=== PATIENT | male | born 1940 | race Caucasian/White ===

== ENCOUNTER 2022-01-10 11:30 | Inpatient (IN) | payer MEDICARE ==
[~2022-01-10] VITALS: Ht 157.5 cm; Wt 86.8 kg
[2022-01-10] MEDS ORDERED: MAG HYDROX/AL HYDROX/SIMETH 30 ML ORAL.SUSP PO PRN (12:45)
[2022-01-10] MEDS ORDERED: METHYL SALICYLATE/MENTHOL TOPICAL OINTMENT 57GM TUBE. TP PRN (12:45)
[2022-01-10] MEDS ORDERED: ACETAMINOPHEN 325 MG TABLET PO PRN (12:45)
[2022-01-10] MEDS ORDERED: MAGNESIUM HYDROXIDE 2,400 MG/30 ML ORAL.SUSP. PO PRN (12:45)
[2022-01-10 13:59] VITALS: BP 100/69
[2022-01-10 14:23] LABS: BACTERIA,URINE 0 /HPF (0-FEW); CLARITY,URINE HAZY; COLOR,URINE YELLOW; GLUCOSE,URINE NEG (NEG); NITRITE,URINE NEG (NEG); SPERM,URINE PRESENT /HPF; SQUAMOUS EPITHELIAL CELL,UR FEW /LPF
[2022-01-10 14:37] LABS: BASO % 1 % (0-3); EOS % 0 % (0-3); HEMATOCRIT 38.7 % (39.0-53.0); HEMOGLOBIN 12.8 g/dL (13.0-17.5); LYMPH % 17 % (24-48); MEAN CORPUSCULAR HEMOGLOBIN 33 pg (25-35); MEAN CORPUSCULAR HGB CONC 33 g/dL (31-37); MEAN CORPUSCULAR VOLUME 100 fL (79-100); MONO # 0.5 x10^3/uL (0.0-1.1); MONO % 8 % (0-9); NEUT # 4.5 x10^3uL (1.8-7.7); NEUT % 74 % (31-73); PLATELET COUNT 190 x10^3/uL (140-400); RED BLOOD COUNT 3.88 x10^6/uL (4.30-5.70); RED CELL DISTRIBUTION WIDTH 14.9 % (11.5-14.5)
[2022-01-10 14:48] LABS: ALBUMIN 2.4 g/dL (3.4-5.0); ALBUMIN/GLOBULIN RATIO 0.8 (1.0-1.7); CALCIUM 8.8 mg/dL (8.5-10.1); CREATININE 1.1 mg/dL (0.7-1.3); GFR 64.6; POTASSIUM 3.7 mmol/L (3.5-5.1); TOTAL BILIRUBIN 0.5 mg/dL (0.2-1.0); TOTAL PROTEIN 5.6 g/dL (6.4-8.2)
--- NOTE | 2022-01-10 15:31 | TX PLAN ---
Interdisciplinary Tx Plan Admission Information Jan 10, 2022 at 12:33 Legal Status (on Admission): Voluntary DPOA/Guardian Name: Farrukh Pineda Contact Other Contact Name: [facility] Other Contact Verified Code Status: DNR Allergies: Coded Allergies: cephalexin (Verified Allergy, Unknown, 01/10/22) lansoprazole (Verified Allergy, Unknown, 01/10/22) Diagnoses Primary Diagnosis: Major Neurocognitive D/O, Vascular Alzheimers D/O with Delusions, Depression and Behavioral Disturbance Reasons for Admission: Aggressive, Agitated, Combative, Confusion/Disoriented, Poor impulse control Problem in Patient's Words: Concerns the are overmedicating him because his is restless and they "don't want to deal with him". Additional Admission Comments: According to the intake, pt is confused, agitated, disrobing, restless, hollering out, refused medications, beligerent, anxious, threatening to kill staff, combative. Problems Active Problems: Appears currently overly medicated Inactive Problems: N/A Pt Strengths/Limitations Ability for [place]: Poor Cognitive Functioning/Ability: Poor Communication Skills/Ability: Poor Financial Resources: Fair Insight/Judgement: Poor Intellectual Ability: Poor Physical Health: Poor Social Skills: Poor Stability in Family: Fair Stability in School/Work: Poor Verbal Skills: Poor Discharge Criteria Discharge Criteria: No need for close observ., Adequate arrangements @DC, Improved behavior, Improved mood/thought Preliminary Discharge Plan Preliminary DC Plan: Current Living Arrange. Special Precautions Fall Risk: Moderate Initial D/C Plan Pt will return to [facility] once stable. Identified Discharge Needs: Evaluate resources for psychiatric services in the area. Currently Utilized Resources Currently Utilized Resources/P: Primary Care Physician Referrals Community Resources: Servies for psychiatric follow-up Identified Problems/Hx/Goals Objectives/Short-Term Goals Short Term Goals: Dec. Aggression, Dec. Outbursts, Medication Stabilization, Promote Coping Skill Short Term Goals in Patient's: Medication and behavioral management Interventions/Frequency Staff Interventions/Frequency&: Psychiatrist to assess pt at least 3x per week for medication management. Social Work to assess pt at least 2x per week to identify barriers to care, discharge goals and plan of care. Nursing to assess medication effects, behavior modification and complete 15 minute checks daily. Encourage participation in group activities (if applicable) or 1:1 engagement based of [employer] [facility] goals. 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 Education: Pt did not graduate highschool, but later was able to receive his GED. Community Follow-up Will continue to follow up with PCP Community Provider/Family Inpu: I think he just needs to be wiped of all medications and start all over from scratch. The hospital "doped" him up so much he can't do anything right now. Treatment Plan Explained Patient/Project Management Instructor had this treatment plan explained to him/her as indicated by the signature below and has been given the opportunity to ask questions and make suggestions: Date: Patient/Project Management Instructor Signature: Patient/Project Management Instructor Decline: No (Dtr active in pt care.) DARCIE OSULLIVAN Jan 10, 2022 15:31
[2022-01-10] MEDS ORDERED: SIMETHICONE 80 MG TAB.CHEW PO PRN (15:45)
[2022-01-10] MEDS ORDERED: BISACODYL 10 MG/30 ML ENEMA RC PRN (15:45)
[2022-01-10 16:29] VITALS: BP 99/67
[2022-01-10] MEDS ORDERED: CLIN-95 PO (16:49)
[2022-01-10] MEDS ORDERED: CARB15DR2 OP (16:49)
[2022-01-10] MEDS ORDERED: BACL10TA PO (16:49)
[2022-01-10] MEDS ORDERED: CRESTOR10 MG PO (16:49)
[2022-01-10] MEDS ORDERED: SIME80TA14 PO (16:49)
[2022-01-10] MEDS ORDERED: BISA10EN RC (16:49)
[2022-01-10] MEDS ORDERED: ALBU2.5V8 IH (16:49)
[2022-01-10] MEDS ORDERED: LISI10TA16 PO (16:49)
[2022-01-10] MEDS ORDERED: FLUT16SP21 NS (16:49)
[2022-01-10] MEDS ORDERED: QUET100T4 PO (16:49)
[2022-01-10] MEDS ORDERED: TRAM50TA PO (16:49)
[2022-01-10] MEDS ORDERED: GEMF-24 PO (16:49)
[2022-01-10] MEDS ORDERED: CALC-30 PO (16:49)
[2022-01-10] MEDS ORDERED: DILT60TA3 PO (16:49)
[2022-01-10] MEDS ORDERED: POTA10TA12 PO (16:49)
[2022-01-10] MEDS ORDERED: HYDR-2145 PO (16:49)
[2022-01-10] MEDS ORDERED: SENN8.6T11 PO (16:49)
[2022-01-10] MEDS ORDERED: DOCU100C28 PO (16:49)
[2022-01-10] MEDS ORDERED: POLY17PO5 PO (16:49)
[2022-01-10] MEDS ORDERED: DICY10CA3 PO (16:49)
[2022-01-10] MEDS ORDERED: mometasone INH (16:49)
[2022-01-10] MEDS ORDERED: TRAZ-125 PO (16:49)
[2022-01-10] MEDS ORDERED: LACT1CAP6 PO (16:49)
[2022-01-10] MEDS ORDERED: ALBUTEROL SULFATE 2.5 MG/3 ML NEBU. IH SCH ×2 (17:00→17:12)
[2022-01-10] MEDS ORDERED: POLYVINYL ALCOHOL/POVIDONE/PF OPHTH SOLUTION DROPERETTE. OU PRN (17:15)
--- NOTE | 2022-01-10 17:24 | EKG ---
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
[2022-01-10] MEDS: DOCUSATE SODIUM 100 MG CAPSULE PO SCH (19:35)
[2022-01-10] MEDS: SENNOSIDES 8.6 MG TABLET PO SCH (19:36)
[2022-01-10] MEDS: POLYETHYLENE GLYCOL 3350 17 GM PACKET. PO SCH (19:36)
[2022-01-10] MEDS: DICYCLOMINE HCL 10 MG CAPSULE PO SCH (19:46)
[2022-01-10] MEDS: ATORVASTATIN CALCIUM 20 MG TABLET PO SCH (19:47)
[2022-01-10] MEDS: POTASSIUM CHLORIDE 10 MEQ TABLET.ER. PO SCH (19:47)
[2022-01-10] MEDS: BACLOFEN 10 MG TABLET PO SCH (19:47)
[2022-01-10] MEDS: traZODone 100 MG TABLET. PO SCH (19:47)
[2022-01-10] MEDS ORDERED: BUDESONIDE 0.5 MG/2 ML NEBU NEB SCH (20:00)
[2022-01-10] MEDS: QUEtiapine 100 MG TABLET. PO SCH (21:00)
[2022-01-10] MEDS: CLINDAMYCIN HCL 300 MG PO SCH (21:00)
[2022-01-10] MEDS: GEMFIBROZIL 600 MG TABLET. PO SCH (21:00)
[2022-01-10] MEDS: ALBUTEROL SULFATE 8GM INHALER. INH SCH (21:00)
--- NOTE | 2022-01-10 21:44 | PDOC ---
Exam Note: Antoine Note: Please also refer to the separate dictated note~for this date of service dictated separately.~Patient seen individually. Discussed the patient with Nursing staff reviewed the chart.~Reviewed interim history and current functioning. Reviewed vital signs,~Labs/ Radiology~and current medications noted below. Continue current treatment with the changes noted in the dictated addendum note Assessment: Vital Signs/I&O: Vital Signs Date Time Temp Pulse Resp B/P (MAP) Pulse Ox O2 Delivery O2 Flow Rate FiO2 01/10/22 16:29 97.7 90 14 99/67 (78) 97 Nasal Cannula 1.0 Labs: Laboratory Tests Test 01/10/22 13:20 01/10/22 14:20 Urine Collection Type U cath Urine Color Yellow Urine Clarity Hazy Urine pH 6.0 Urine Specific [place] >=1.030 Urine Protein Trace (NEG-TRACE) Urine Glucose (UA) Neg mg/dL (NEG) Urine Ketones (Stick) Neg mg/dL (NEG) Urine Blood Neg (NEG) Urine Nitrite Neg (NEG) Urine Bilirubin Small (NEG) Urine Urobilinogen Dipstick 1.0 mg/dL (0.2 mg/dL) Urine Leukocyte Esterase Neg (NEG) Urine RBC 6-10 /HPF (0-2) Urine WBC 1-4 /HPF (0-4) Urine Squamous Epithelial Cells Few /LPF Urine Transitional Epithelial Cells Occ /LPF Urine Bacteria 0 /HPF (0-FEW) Urine Mucus Mod /LPF Urine Sperm Present /HPF White Blood Count 6.0 x10^3/uL (4.0-11.0) Red Blood Count 3.88 x10^6/uL (4.30-5.70) L Hemoglobin 12.8 g/dL (13.0-17.5) L Hematocrit 38.7 % (39.0-53.0) L Mean Corpuscular Volume 100 fL (79-100) Mean Corpuscular Hemoglobin 33 pg (25-35) Mean Corpuscular Hemoglobin Concent 33 g/dL (31-37) Red Cell Distribution Width 14.9 % (11.5-14.5) H Platelet Count 190 x10^3/uL (140-400) Neutrophils (%) (Auto) 74 % (31-73) H Lymphocytes (%) (Auto) 17 % (24-48) L Monocytes (%) (Auto) 8 % (0-9) Eosinophils (%) (Auto) 0 % (0-3) Basophils (%) (Auto) 1 % (0-3) Neutrophils # (Auto) 4.5 x10^3uL (1.8-7.7) Lymphocytes # (Auto) 1.0 x10^3/uL (1.0-4.8) Monocytes # (Auto) 0.5 x10^3/uL (0.0-1.1) Eosinophils # (Auto) 0.0 x10^3/uL (0.0-0.7) Basophils # (Auto) 0.0 x10^3/uL (0.0-0.2) D-Dimer (Lainey) 0.91 mg/L (0.00-0.50) H Sodium Level 138 mmol/L (136-145) Potassium Level 3.7 mmol/L (3.5-5.1) Chloride Level 104 mmol/L (98-107) Carbon Dioxide Level 28 mmol/L (21-32) Anion Gap 6 (6-14) Blood Urea Nitrogen 13 mg/dL (8-26) Creatinine 1.1 mg/dL (0.7-1.3) Estimated GFR (Cockcroft-Gault) 64.6 BUN/Creatinine Ratio 12 (6-20) Glucose Level 92 mg/dL (70-99) Calcium Level 8.8 mg/dL (8.5-10.1) Magnesium Level 2.0 mg/dL (1.8-2.4) Total Bilirubin 0.5 mg/dL (0.2-1.0) Aspartate Amino Transferase (AST) 22 U/L (15-37) Alanine Aminotransferase (ALT) 31 U/L (16-63) Alkaline Phosphatase 68 U/L (46-116) Total Protein 5.6 g/dL (6.4-8.2) L Albumin 2.4 g/dL (3.4-5.0) L Albumin/Globulin Ratio 0.8 (1.0-1.7) L Current Medications: Meds: Laboratory Tests Test 01/10/22 13:20 01/10/22 14:20 Urine Collection Type U cath Urine Color Yellow Urine Clarity Hazy Urine pH 6.0 Urine Specific [place] >=1.030 Urine Protein Trace Urine Glucose (UA) Neg mg/dL Urine Ketones (Stick) Neg mg/dL Urine Blood Neg Urine Nitrite Neg Urine Bilirubin Small Urine Urobilinogen Dipstick 1.0 mg/dL Urine Leukocyte Esterase Neg Urine RBC 6-10 /HPF Urine WBC 1-4 /HPF Urine Squamous Epithelial Cells Few /LPF Urine Transitional Epithelial Cells Occ /LPF Urine Bacteria 0 /HPF Urine Mucus Mod /LPF Urine Sperm Present /HPF White Blood Count 6.0 x10^3/uL Red Blood Count 3.88 x10^6/uL Hemoglobin 12.8 g/dL Hematocrit 38.7 % Mean Corpuscular Volume 100 fL Mean Corpuscular Hemoglobin 33 pg Mean Corpuscular Hemoglobin Concent 33 g/dL Red Cell Distribution Width 14.9 % Platelet Count 190 x10^3/uL Neutrophils (%) (Auto) 74 % Lymphocytes (%) (Auto) 17 % Monocytes (%) (Auto) 8 % Eosinophils (%) (Auto) 0 % Basophils (%) (Auto) 1 % Neutrophils # (Auto) 4.5 x10^3uL Lymphocytes # (Auto) 1.0 x10^3/uL Monocytes # (Auto) 0.5 x10^3/uL Eosinophils # (Auto) 0.0 x10^3/uL Basophils # (Auto) 0.0 x10^3/uL D-Dimer (Lainey) 0.91 mg/L Sodium Level 138 mmol/L Potassium Level 3.7 mmol/L Chloride Level 104 mmol/L Carbon Dioxide Level 28 mmol/L Anion Gap 6 Blood Urea Nitrogen 13 mg/dL Creatinine 1.1 mg/dL Estimated GFR (Cockcroft-Gault) 64.6 BUN/Creatinine Ratio 12 Glucose Level 92 mg/dL Calcium Level 8.8 mg/dL Magnesium Level 2.0 mg/dL Total Bilirubin 0.5 mg/dL Aspartate Amino Transf (AST/SGOT) 22 U/L Alanine Aminotransferase (ALT/SGPT) 31 U/L Alkaline Phosphatase 68 U/L Total Protein 5.6 g/dL Albumin 2.4 g/dL Albumin/Globulin Ratio 0.8 Current Medications Medications (Trade) Dose Ordered Sig/Kathy Route PRN Reason Start Time Stop Time Status Last Admin Dose Admin Acetaminophen (Tylenol) 650 mg PRN Q6HRS PRN PO MILD PAIN / TEMP > 100.3'F 01/10/22 12:45 Multi-Ingredient Ointment (Analgesic [place]) 1 brenna PRN QID PRN TP MUSCLE PAIN 01/10/22 12:45 Al Hydroxide/Mg Hydroxide (Mylanta Plus Xs) 15 ml PRN AFTMEALHC PRN PO DYSPEPSIA 01/10/22 12:45 Magnesium Hydroxide (Milk Of Magnesia) 2,400 mg PRN QHS PRN PO CONSTIPATION 01/10/22 12:45 Albuterol Sulfate (Ventolin) 1.8 mg QID IH 01/10/22 17:00 01/10/22 17:12 DC Baclofen (Lioresal) 10 mg TID PO 01/10/22 21:00 01/10/22 19:47 Bisacodyl (Fleet Bisacodyl) 10 mg PRN DAILY PRN RC CONSTIPATION 01/10/22 15:45 Dicyclomine HCl (Bentyl) 10 mg TID PO 01/10/22 21:00 01/10/22 19:46 Docusate Sodium (Colace) 100 mg BID PO 01/10/22 21:00 Fluticasone Propionate (Flonase) 1 spray DAILY NS 01/11/22 09:00 Gemfibrozil (Lopid) 600 mg BID PO 01/10/22 21:00 Hydrochlorothiazide (Hydrodiuril) 25 mg DAILY PO 01/11/22 09:00 Lisinopril (Prinivil) 10 mg DAILY PO 01/11/22 09:00 Polyethylene Glycol (miraLAX) 17 gm TID PO 01/10/22 21:00 Potassium Chloride (Klor-Con) 10 meq TID PO 01/10/22 21:00 01/10/22 19:47 Quetiapine Fumarate (SEROquel) 100 mg BID PO 01/10/22 21:00 Sennosides (Senna) 8.6 mg BID PO 01/10/22 21:00 Simethicone (Gas-X) 80 mg PRN Q8HRS PRN PO GAS / BLOATING 01/10/22 15:45 Tramadol HCl (Ultram) 25 mg PRN Q8HRS PRN PO PAIN 01/10/22 15:45 Trazodone HCl (Desyrel) 200 mg QHS PO 01/10/22 21:00 01/10/22 19:47 Calcium/Vitamin D (Oscal D 500mg/ 200uts) 2 tab DAILY PO 01/11/22 09:00 Artificial Tears (Refresh Classic) 2 drop PRN Q6HRS PRN OU DRY EYE 01/10/22 17:15 Non-Formulary Medication (Clindamycin Hcl ) 300 mg TID PO 01/10/22 21:00 UNV Diltiazem HCl (Cardizem 24hr Cd) 120 mg DAILY PO 01/11/22 09:00 Non-Formulary Medication (Lactobacillus Acidophilus (Probiotic)) 1 cap DAILY PO 01/11/22 09:00 UNV Atorvastatin Calcium (Lipitor) 20 mg QHS PO 01/10/22 21:00 01/10/22 19:47 Non-Formulary Medication ([mometasone ] ) 220 mcg DAILY INH 01/11/22 09:00 01/10/22 17:17 DC Albuterol Sulfate (Ventolin) 2.5 mg QID IH 01/10/22 17:12 Cancel Budesonide (Pulmicort) 0.5 mg RTBID NEB 01/10/22 20:00 Cancel Fluticasone Furoate (ARNUITY 100mcg ELLIPTA) 1 puff DAILY INH 01/11/22 09:00 Albuterol Sulfate (Ventolin Hfa Inhaler) 2 puff QID INH 01/10/22 21:00 Current Medications Medications (Trade) Dose Ordered Sig/Kathy Route PRN Reason Start Time Stop Time Status Last Admin Dose Admin Baclofen (Lioresal) 10 mg TID PO 01/10/22 21:00 01/10/22 19:47 Dicyclomine HCl (Bentyl) 10 mg TID PO 01/10/22 21:00 01/10/22 19:46 Potassium Chloride (Klor-Con) 10 meq TID PO 01/10/22 21:00 01/10/22 19:47 Trazodone HCl (Desyrel) 200 mg QHS PO 01/10/22 21:00 01/10/22 19:47 Atorvastatin Calcium (Lipitor) 20 mg QHS PO 01/10/22 21:00 01/10/22 19:47 I have reviewed the current psychotropics carefully including drug interactions. Risk benefit ratio favors no change other than as noted in my dictated progress note. LATISHA KHAN MD Jan 10, 2022 21:44
[2022-01-11 00:07] LABS: HEMOGLOBIN A1C 6.1 % (4.8-5.6)
[2022-01-11 01:07] LABS: THYROXINE 6.1 ug/dL (4.5-12.0)
[2022-01-11] MEDS: traMADol 50 MG TABLET PO PRN ×2 (05:36→22:29)
[2022-01-11 06:22] VITALS: BP 112/65
[2022-01-11] MEDS ORDERED: NON FORMULARY ITEM (Lactobacillus Acidophilus (Probiotic) 1 CAP) PO SCH (09:00)
[2022-01-11] MEDS: DOCUSATE SODIUM 100 MG CAPSULE PO SCH ×2 (09:00→20:45)
[2022-01-11] MEDS: SENNOSIDES 8.6 MG TABLET PO SCH ×2 (09:00→20:45)
[2022-01-11] MEDS ORDERED: MOMETASONE 220 MCG INH SCH (09:00)
[2022-01-11] MEDS: CLINDAMYCIN HCL 300 MG PO SCH (09:00)
[2022-01-11] MEDS: POLYETHYLENE GLYCOL 3350 17 GM PACKET. PO SCH ×3 (09:00→20:45)
[2022-01-11] MEDS: hydroCHLOROthiazide 25 MG TABLET. PO SCH (09:09)
[2022-01-11] MEDS: DICYCLOMINE HCL 10 MG CAPSULE PO SCH ×3 (09:09→20:21)
[2022-01-11] MEDS: LISINOPRIL 10 MG TABLET PO SCH (09:09)
[2022-01-11] MEDS: BACLOFEN 10 MG TABLET PO SCH ×3 (09:09→20:19)
[2022-01-11] MEDS: GEMFIBROZIL 600 MG TABLET. PO SCH ×2 (09:09→20:13)
[2022-01-11] MEDS: POTASSIUM CHLORIDE 10 MEQ TABLET.ER. PO SCH ×3 (09:09→20:18)
[2022-01-11] MEDS: CALCIUM CARB/VIT D3 500/200 TABLET PO SCH (09:09)
[2022-01-11] MEDS: QUEtiapine 100 MG TABLET. PO SCH ×2 (09:09→20:18)
[2022-01-11] MEDS: FLUTICASONE FUROATE 100mcg/INH ELLIPTA INHALER. INH SCH (09:11)
[2022-01-11] MEDS: FLUTICASONE 50MCG/NASAL SPRAY 16GM BOTTLE. NS SCH (09:11)
[2022-01-11] MEDS: ALBUTEROL SULFATE 8GM INHALER. INH SCH ×4 (09:11→20:45)
[2022-01-11] MEDS: CLINDAMYCIN HCL 150 MG CAPSULE PO SCH ×2 (14:14→20:22)
[2022-01-11 15:38] VITALS: BP 111/71
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
[2022-01-11] MEDS: DIVALPROEX 125 MG CAP.SPRINK PO SCH (17:17)
[2022-01-11] MEDS: traZODone 100 MG TABLET. PO SCH (20:13)
[2022-01-11] MEDS: ATORVASTATIN CALCIUM 20 MG TABLET PO SCH (20:18)
[2022-01-11] MEDS: LACTOBACILLUS RHAMNOSUS GG 1 CAPSULE. PO SCH (20:22)
--- NOTE | 2022-01-11 21:42 | PDOC ---
Exam Note: Antoine Note: Please also refer to the separate dictated note~for this date of service dictated separately.~Patient seen individually. Discussed the patient with Nursing staff reviewed the chart.~Reviewed interim history and current functioning. Reviewed vital signs,~Labs/ Radiology~and current medications noted below. Continue current treatment with the changes noted in the dictated addendum note Assessment: Vital Signs/I&O: Vital Signs Date Time Temp Pulse Resp B/P (MAP) Pulse Ox O2 Delivery O2 Flow Rate FiO2 01/11/22 15:38 97.4 94 19 111/71 (84) 93 01/10/22 16:29 Nasal Cannula 1.0 I & O 01/10/22 01/10/22 01/11/22 15:00 23:00 07:00 Intake Total 0 ml Balance 0 ml Current Medications: Meds: Current Medications Medications (Trade) Dose Ordered Sig/Kathy Route PRN Reason Start Time Stop Time Status Last Admin Dose Admin Acetaminophen (Tylenol) 650 mg PRN Q6HRS PRN PO MILD PAIN / TEMP > 100.3'F 01/10/22 12:45 Multi-Ingredient Ointment (Analgesic [place]) 1 brenna PRN QID PRN TP MUSCLE PAIN 01/10/22 12:45 Al Hydroxide/Mg Hydroxide (Mylanta Plus Xs) 15 ml PRN AFTMEALHC PRN PO DYSPEPSIA 01/10/22 12:45 Magnesium Hydroxide (Milk Of Magnesia) 2,400 mg PRN QHS PRN PO 1ST CHOICE CONSTIPATION 01/10/22 12:45 Albuterol Sulfate (Ventolin) 1.8 mg QID IH 01/10/22 17:00 01/10/22 17:12 DC Baclofen (Lioresal) 10 mg TID PO 01/10/22 21:00 01/11/22 20:19 Bisacodyl (Fleet Bisacodyl) 10 mg PRN DAILY PRN RC 2ND CHOICE CONSTIPATION 01/10/22 15:45 Dicyclomine HCl (Bentyl) 10 mg TID PO 01/10/22 21:00 01/11/22 20:21 Docusate Sodium (Colace) 100 mg BID PO 01/10/22 21:00 Fluticasone Propionate (Flonase) 1 spray DAILY NS 01/11/22 09:00 01/11/22 09:11 Gemfibrozil (Lopid) 600 mg BID PO 01/10/22 21:00 01/11/22 20:13 Hydrochlorothiazide (Hydrodiuril) 25 mg DAILY PO 01/11/22 09:00 01/11/22 09:09 Lisinopril (Prinivil) 10 mg DAILY PO 01/11/22 09:00 01/11/22 09:09 Polyethylene Glycol (miraLAX) 17 gm TID PO 01/10/22 21:00 Potassium Chloride (Klor-Con) 10 meq TID PO 01/10/22 21:00 01/11/22 20:18 Quetiapine Fumarate (SEROquel) 100 mg BID PO 01/10/22 21:00 01/11/22 20:18 Sennosides (Senna) 8.6 mg BID PO 01/10/22 21:00 Simethicone (Gas-X) 80 mg PRN Q8HRS PRN PO GAS / BLOATING 01/10/22 15:45 Tramadol HCl (Ultram) 25 mg PRN Q8HRS PRN PO PAIN 01/10/22 15:45 01/11/22 05:36 Trazodone HCl (Desyrel) 200 mg QHS PO 01/10/22 21:00 01/11/22 20:13 Calcium/Vitamin D (Oscal D 500mg/ 200uts) 2 tab DAILY PO 01/11/22 09:00 01/11/22 09:09 Artificial Tears (Refresh Classic) 2 drop PRN Q6HRS PRN OU DRY EYE 01/10/22 17:15 Non-Formulary Medication (Clindamycin Hcl ) 300 mg TID PO 01/10/22 21:00 01/11/22 12:35 DC Diltiazem HCl (Cardizem 24hr Cd) 120 mg DAILY PO 01/11/22 09:00 01/11/22 09:10 Non-Formulary Medication (Lactobacillus Acidophilus (Probiotic)) 1 cap DAILY PO 01/11/22 09:00 01/11/22 12:34 DC Atorvastatin Calcium (Lipitor) 20 mg QHS PO 01/10/22 21:00 01/11/22 20:18 Non-Formulary Medication ([mometasone ] ) 220 mcg DAILY INH 01/11/22 09:00 01/10/22 17:17 DC Albuterol Sulfate (Ventolin) 2.5 mg QID IH 01/10/22 17:12 Cancel Budesonide (Pulmicort) 0.5 mg RTBID NEB 01/10/22 20:00 Cancel Fluticasone Furoate (ARNUITY 100mcg ELLIPTA) 1 puff DAILY INH 01/11/22 09:00 01/11/22 09:11 Albuterol Sulfate (Ventolin Hfa Inhaler) 2 puff QID INH 01/10/22 21:00 01/11/22 17:26 Olanzapine (ZyPREXA ZYDIS) 5 mg PRN Q2HR PRN PO PSYCHOSIS 01/10/22 22:45 01/11/22 05:37 Divalproex Sodium (Depakote Sprinkles) 125 mg BIDWMEALS PO 01/11/22 17:00 01/11/22 17:17 Clindamycin HCl (Cleocin) 300 mg TID PO 01/11/22 14:00 01/15/22 10:00 01/11/22 20:22 Lactobacillus Rhamnosus (Culturelle) 1 cap BID PO 01/11/22 21:00 01/11/22 20:22 Current Medications Medications (Trade) Dose Ordered Sig/Kathy Route PRN Reason Start Time Stop Time Status Last Admin Dose Admin Fluticasone Propionate (Flonase) 1 spray DAILY NS 01/11/22 09:00 01/11/22 09:11 Hydrochlorothiazide (Hydrodiuril) 25 mg DAILY PO 01/11/22 09:00 01/11/22 09:09 Lisinopril (Prinivil) 10 mg DAILY PO 01/11/22 09:00 01/11/22 09:09 Calcium/Vitamin D (Oscal D 500mg/ 200uts) 2 tab DAILY PO 01/11/22 09:00 01/11/22 09:09 Diltiazem HCl (Cardizem 24hr Cd) 120 mg DAILY PO 01/11/22 09:00 01/11/22 09:10 Fluticasone Furoate (ARNUITY 100mcg ELLIPTA) 1 puff DAILY INH 01/11/22 09:00 01/11/22 09:11 Olanzapine (ZyPREXA ZYDIS) 5 mg PRN Q2HR PRN PO PSYCHOSIS 01/10/22 22:45 01/11/22 05:37 Divalproex Sodium (Depakote Sprinkles) 125 mg BIDWMEALS PO 01/11/22 17:00 01/11/22 17:17 Clindamycin HCl (Cleocin) 300 mg TID PO 01/11/22 14:00 01/15/22 10:00 01/11/22 20:22 Lactobacillus Rhamnosus (Culturelle) 1 cap BID PO 01/11/22 21:00 01/11/22 20:22 I have reviewed the current psychotropics carefully including drug interactions. Risk benefit ratio favors no change other than as noted in my dictated progress note. LATISHA KHAN MD Jan 11, 2022 21:42
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
[2022-01-12 06:44] VITALS: BP 100/77
[2022-01-12] MEDS: DOCUSATE SODIUM 100 MG CAPSULE PO SCH ×2 (08:43→21:28)
[2022-01-12] MEDS: POTASSIUM CHLORIDE 10 MEQ TABLET.ER. PO SCH ×3 (08:43→21:28)
[2022-01-12] MEDS: POLYETHYLENE GLYCOL 3350 17 GM PACKET. PO SCH ×3 (08:44→21:29)
[2022-01-12] MEDS: hydroCHLOROthiazide 25 MG TABLET. PO SCH (08:45)
[2022-01-12] MEDS: CALCIUM CARB/VIT D3 500/200 TABLET PO SCH (08:45)
[2022-01-12] MEDS: DICYCLOMINE HCL 10 MG CAPSULE PO SCH ×3 (08:46→21:18)
[2022-01-12] MEDS: SENNOSIDES 8.6 MG TABLET PO SCH ×2 (08:47→21:28)
[2022-01-12] MEDS: DIVALPROEX 125 MG CAP.SPRINK PO SCH ×2 (08:47→16:21)
[2022-01-12] MEDS: QUEtiapine 100 MG TABLET. PO SCH ×2 (08:47→21:18)
[2022-01-12] MEDS: CLINDAMYCIN HCL 150 MG CAPSULE PO SCH ×3 (08:48→21:18)
[2022-01-12] MEDS: LACTOBACILLUS RHAMNOSUS GG 1 CAPSULE. PO SCH ×2 (08:48→21:29)
[2022-01-12] MEDS: GEMFIBROZIL 600 MG TABLET. PO SCH ×2 (08:48→21:28)
[2022-01-12] MEDS: BACLOFEN 10 MG TABLET PO SCH ×3 (08:48→21:18)
[2022-01-12] MEDS: FLUTICASONE FUROATE 100mcg/INH ELLIPTA INHALER. INH SCH (08:49)
[2022-01-12] MEDS: LISINOPRIL 10 MG TABLET PO SCH (08:49)
[2022-01-12] MEDS: ALBUTEROL SULFATE 8GM INHALER. INH SCH ×4 (08:49→21:27)
[2022-01-12] MEDS: FLUTICASONE 50MCG/NASAL SPRAY 16GM BOTTLE. NS SCH (08:49)
[2022-01-12 15:42] VITALS: BP 115/80
[2022-01-12 21:09] LABS: CHOLESTEROL/HDL RATIO 3.5; THYROID STIM HORMONE (TSH) 1.165 uIU/mL (0.358-3.740)
[2022-01-12] MEDS: traZODone 100 MG TABLET. PO SCH (21:17)
[2022-01-12] MEDS: MIRTAZAPINE 7.5 MG TABLET. PO SCH (21:18)
[2022-01-12] MEDS: ATORVASTATIN CALCIUM 20 MG TABLET PO SCH (21:29)
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
--- NOTE | 2022-01-12 21:54 | PDOC ---
Exam Note: Antoine Note: Please also refer to the separate dictated note~for this date of service dictated separately.~Patient seen individually. Discussed the patient with Nursing staff reviewed the chart.~Reviewed interim history and current functioning. Reviewed vital signs,~Labs/ Radiology~and current medications noted below. Continue current treatment with the changes noted in the dictated addendum note Assessment: Vital Signs/I&O: Vital Signs Date Time Temp Pulse Resp B/P (MAP) Pulse Ox O2 Delivery O2 Flow Rate FiO2 01/12/22 15:42 98.6 90 16 115/80 (92) 96 01/11/22 22:59 Room Air 01/10/22 16:29 1.0 I & O 0 01/11/22 01/11/22 01/12/22 14:59 22:59 06:59 Intake Total 340 ml 50 ml Output Total 900 ml Balance 340 ml 50 ml -900 ml Current Medications: Meds: Current Medications Medications (Trade) Dose Ordered Sig/Kathy Route PRN Reason Start Time Stop Time Status Last Admin Dose Admin Acetaminophen (Tylenol) 650 mg PRN Q6HRS PRN PO MILD PAIN / TEMP > 100.3'F 01/10/22 12:45 Multi-Ingredient Ointment (Analgesic [place]) 1 brenna PRN QID PRN TP MUSCLE PAIN 01/10/22 12:45 Al Hydroxide/Mg Hydroxide (Mylanta Plus Xs) 15 ml PRN AFTMEALHC PRN PO DYSPEPSIA 01/10/22 12:45 Magnesium Hydroxide (Milk Of Magnesia) 2,400 mg PRN QHS PRN PO 1ST CHOICE CONSTIPATION 01/10/22 12:45 Albuterol Sulfate (Ventolin) 1.8 mg QID IH 01/10/22 17:00 01/10/22 17:12 DC Baclofen (Lioresal) 10 mg TID PO 01/10/22 21:00 01/12/22 21:18 Bisacodyl (Fleet Bisacodyl) 10 mg PRN DAILY PRN RC 2ND CHOICE CONSTIPATION 01/10/22 15:45 Dicyclomine HCl (Bentyl) 10 mg TID PO 01/10/22 21:00 01/12/22 21:18 Docusate Sodium (Colace) 100 mg BID PO 01/10/22 21:00 01/12/22 21:28 Fluticasone Propionate (Flonase) 1 spray DAILY NS 01/11/22 09:00 01/12/22 08:49 Gemfibrozil (Lopid) 600 mg BID PO 01/10/22 21:00 01/12/22 21:28 Hydrochlorothiazide (Hydrodiuril) 25 mg DAILY PO 01/11/22 09:00 01/12/22 08:45 Lisinopril (Prinivil) 10 mg DAILY PO 01/11/22 09:00 01/12/22 08:49 Polyethylene Glycol (miraLAX) 17 gm TID PO 01/10/22 21:00 01/12/22 21:29 Potassium Chloride (Klor-Con) 10 meq TID PO 01/10/22 21:00 01/12/22 21:28 Quetiapine Fumarate (SEROquel) 100 mg BID PO 01/10/22 21:00 01/12/22 21:18 Sennosides (Senna) 8.6 mg BID PO 01/10/22 21:00 01/12/22 21:28 Simethicone (Gas-X) 80 mg PRN Q8HRS PRN PO GAS / BLOATING 01/10/22 15:45 Tramadol HCl (Ultram) 25 mg PRN Q8HRS PRN PO PAIN 01/10/22 15:45 01/11/22 22:29 Trazodone HCl (Desyrel) 200 mg QHS PO 01/10/22 21:00 01/12/22 21:17 Calcium/Vitamin D (Oscal D 500mg/ 200uts) 2 tab DAILY PO 01/11/22 09:00 01/12/22 08:45 Artificial Tears (Refresh Classic) 2 drop PRN Q6HRS PRN OU DRY EYE 01/10/22 17:15 Non-Formulary Medication (Clindamycin Hcl ) 300 mg TID PO 01/10/22 21:00 01/11/22 12:35 DC Diltiazem HCl (Cardizem 24hr Cd) 120 mg DAILY PO 01/11/22 09:00 01/12/22 08:46 Non-Formulary Medication (Lactobacillus Acidophilus (Probiotic)) 1 cap DAILY PO 01/11/22 09:00 01/11/22 12:34 DC Atorvastatin Calcium (Lipitor) 20 mg QHS PO 01/10/22 21:00 01/12/22 21:29 Non-Formulary Medication ([mometasone ] ) 220 mcg DAILY INH 01/11/22 09:00 01/10/22 17:17 DC Albuterol Sulfate (Ventolin) 2.5 mg QID IH 01/10/22 17:12 Cancel Budesonide (Pulmicort) 0.5 mg RTBID NEB 01/10/22 20:00 Cancel Fluticasone Furoate (ARNUITY 100mcg ELLIPTA) 1 puff DAILY INH 01/11/22 09:00 01/12/22 08:49 Albuterol Sulfate (Ventolin Hfa Inhaler) 2 puff QID INH 01/10/22 21:00 01/12/22 21:27 Olanzapine (ZyPREXA ZYDIS) 5 mg PRN Q2HR PRN PO PSYCHOSIS 01/10/22 22:45 01/11/22 22:29 Divalproex Sodium (Depakote Sprinkles) 125 mg BIDWMEALS PO 01/11/22 17:00 01/12/22 16:21 Clindamycin HCl (Cleocin) 300 mg TID PO 01/11/22 14:00 01/15/22 10:00 01/12/22 21:18 Lactobacillus Rhamnosus (Culturelle) 1 cap BID PO 01/11/22 21:00 01/12/22 21:29 Mirtazapine (Remeron) 7.5 mg QHS PO 01/12/22 21:00 01/12/22 21:18 Current Medications Medications (Trade) Dose Ordered Sig/Kathy Route PRN Reason Start Time Stop Time Status Last Admin Dose Admin Mirtazapine (Remeron) 7.5 mg QHS PO 01/12/22 21:00 01/12/22 21:18 I have reviewed the current psychotropics carefully including drug interactions. Risk benefit ratio favors no change other than as noted in my dictated progress note. Diagnosis: Problems: (1) Impulse control disorder, unspecified (2) Anxiety disorder, unspecified (3) Dementia, vascular, with depression (4) Dementia, vascular, with delusions (5) Dementia in Alzheimer's disease with depression (6) Dementia in Alzheimer's disease with delusions (7) Dementia of the Alzheimer's type with early onset with behavioral disturbance (8) Major neurocognitive disorder LATISHA KHAN MD Jan 12, 2022 21:54
[2022-01-13 06:01] VITALS: BP 111/67
[2022-01-13] MEDS: POLYETHYLENE GLYCOL 3350 17 GM PACKET. PO SCH ×3 (07:51→21:00)
[2022-01-13] MEDS: QUEtiapine 100 MG TABLET. PO SCH ×2 (07:53→21:15)
[2022-01-13] MEDS: BACLOFEN 10 MG TABLET PO SCH ×3 (07:53→21:20)
[2022-01-13] MEDS: FLUTICASONE 50MCG/NASAL SPRAY 16GM BOTTLE. NS SCH (07:53)
[2022-01-13] MEDS: ALBUTEROL SULFATE 8GM INHALER. INH SCH ×4 (07:53→21:20)
[2022-01-13] MEDS: CALCIUM CARB/VIT D3 500/200 TABLET PO SCH (07:53)
[2022-01-13] MEDS: FLUTICASONE FUROATE 100mcg/INH ELLIPTA INHALER. INH SCH (07:53)
[2022-01-13] MEDS: DICYCLOMINE HCL 10 MG CAPSULE PO SCH ×3 (07:54→21:20)
[2022-01-13] MEDS: hydroCHLOROthiazide 25 MG TABLET. PO SCH (07:54)
[2022-01-13] MEDS: SENNOSIDES 8.6 MG TABLET PO SCH ×2 (07:54→21:00)
[2022-01-13] MEDS: LISINOPRIL 10 MG TABLET PO SCH (07:54)
[2022-01-13] MEDS: DOCUSATE SODIUM 100 MG CAPSULE PO SCH ×3 (07:54→21:15)
[2022-01-13] MEDS: GEMFIBROZIL 600 MG TABLET. PO SCH ×2 (07:54→21:15)
[2022-01-13] MEDS: LACTOBACILLUS RHAMNOSUS GG 1 CAPSULE. PO SCH ×2 (07:55→21:15)
[2022-01-13] MEDS: DIVALPROEX 125 MG CAP.SPRINK PO SCH ×2 (07:55→16:26)
[2022-01-13] MEDS: CLINDAMYCIN HCL 150 MG CAPSULE PO SCH ×3 (07:55→21:20)
[2022-01-13] MEDS: POTASSIUM CHLORIDE 10 MEQ TABLET.ER. PO SCH ×3 (07:56→21:20)
[2022-01-13 15:57] VITALS: BP 102/69
[2022-01-13] MEDS: traZODone 100 MG TABLET. PO SCH (21:15)
[2022-01-13] MEDS: ATORVASTATIN CALCIUM 20 MG TABLET PO SCH (21:15)
[2022-01-13] MEDS: MELATONIN 3 MG TABLET PO SCH (21:15)
[2022-01-13] MEDS: MIRTAZAPINE 7.5 MG TABLET. PO SCH (21:15)
--- NOTE | 2022-01-13 21:32 | PDOC ---
Exam Note: Antoine Note: Please also refer to the separate dictated note~for this date of service dictated separately.~Patient seen individually. Discussed the patient with Nursing staff reviewed the chart.~Reviewed interim history and current functioning. Reviewed vital signs,~Labs/ Radiology~and current medications noted below. Continue current treatment with the changes noted in the dictated addendum note Assessment: Vital Signs/I&O: Vital Signs Date Time Temp Pulse Resp B/P (MAP) Pulse Ox O2 Delivery O2 Flow Rate FiO2 01/13/22 15:57 97.0 60 16 102/69 (80) 93 01/13/22 06:01 Room Air 01/10/22 16:29 1.0 I & O 0 01/12/22 01/12/22 01/13/22 15:00 23:00 07:00 Intake Total 480 ml 0 ml Output Total 450 ml 450 ml Balance 480 ml -450 ml -450 ml Current Medications: Meds: Current Medications Medications (Trade) Dose Ordered Sig/Kathy Route PRN Reason Start Time Stop Time Status Last Admin Dose Admin Acetaminophen (Tylenol) 650 mg PRN Q6HRS PRN PO MILD PAIN / TEMP > 100.3'F 01/10/22 12:45 Multi-Ingredient Ointment (Analgesic [place]) 1 brenna PRN QID PRN TP MUSCLE PAIN 01/10/22 12:45 Al Hydroxide/Mg Hydroxide (Mylanta Plus Xs) 15 ml PRN AFTMEALHC PRN PO DYSPEPSIA 01/10/22 12:45 Magnesium Hydroxide (Milk Of Magnesia) 2,400 mg PRN QHS PRN PO 1ST CHOICE CONSTIPATION 01/10/22 12:45 Albuterol Sulfate (Ventolin) 1.8 mg QID IH 01/10/22 17:00 01/10/22 17:12 DC Baclofen (Lioresal) 10 mg TID PO 01/10/22 21:00 01/13/22 21:20 Bisacodyl (Fleet Bisacodyl) 10 mg PRN DAILY PRN RC 2ND CHOICE CONSTIPATION 01/10/22 15:45 Dicyclomine HCl (Bentyl) 10 mg TID PO 01/10/22 21:00 01/13/22 21:20 Docusate Sodium (Colace) 100 mg BID PO 01/10/22 21:00 01/13/22 07:54 Fluticasone Propionate (Flonase) 1 spray DAILY NS 01/11/22 09:00 01/13/22 07:53 Gemfibrozil (Lopid) 600 mg BID PO 01/10/22 21:00 01/13/22 21:15 Hydrochlorothiazide (Hydrodiuril) 25 mg DAILY PO 01/11/22 09:00 01/13/22 07:54 Lisinopril (Prinivil) 10 mg DAILY PO 01/11/22 09:00 01/13/22 07:54 Polyethylene Glycol (miraLAX) 17 gm TID PO 01/10/22 21:00 01/13/22 13:22 Potassium Chloride (Klor-Con) 10 meq TID PO 01/10/22 21:00 01/13/22 21:20 Quetiapine Fumarate (SEROquel) 100 mg BID PO 01/10/22 21:00 01/13/22 21:15 Sennosides (Senna) 8.6 mg BID PO 01/10/22 21:00 01/13/22 07:54 Simethicone (Gas-X) 80 mg PRN Q8HRS PRN PO GAS / BLOATING 01/10/22 15:45 Tramadol HCl (Ultram) 25 mg PRN Q8HRS PRN PO MOD-SEV PAIN 01/10/22 15:45 01/11/22 22:29 Trazodone HCl (Desyrel) 200 mg QHS PO 01/10/22 21:00 01/13/22 21:15 Calcium/Vitamin D (Oscal D 500mg/ 200uts) 2 tab DAILY PO 01/11/22 09:00 01/13/22 07:53 Artificial Tears (Refresh Classic) 2 drop PRN Q6HRS PRN OU DRY EYE 01/10/22 17:15 Non-Formulary Medication (Clindamycin Hcl ) 300 mg TID PO 01/10/22 21:00 01/11/22 12:35 DC Diltiazem HCl (Cardizem 24hr Cd) 120 mg DAILY PO 01/11/22 09:00 01/13/22 07:55 Non-Formulary Medication (Lactobacillus Acidophilus (Probiotic)) 1 cap DAILY PO 01/11/22 09:00 01/11/22 12:34 DC Atorvastatin Calcium (Lipitor) 20 mg QHS PO 01/10/22 21:00 01/13/22 21:15 Non-Formulary Medication ([mometasone ] ) 220 mcg DAILY INH 01/11/22 09:00 01/10/22 17:17 DC Albuterol Sulfate (Ventolin) 2.5 mg QID IH 01/10/22 17:12 Cancel Budesonide (Pulmicort) 0.5 mg RTBID NEB 01/10/22 20:00 Cancel Fluticasone Furoate (ARNUITY 100mcg ELLIPTA) 1 puff DAILY INH 01/11/22 09:00 01/13/22 07:53 Albuterol Sulfate (Ventolin Hfa Inhaler) 2 puff QID INH 01/10/22 21:00 01/13/22 21:20 Olanzapine (ZyPREXA ZYDIS) 5 mg PRN Q2HR PRN PO PSYCHOSIS 01/10/22 22:45 01/11/22 22:29 Divalproex Sodium (Depakote Sprinkles) 125 mg BIDWMEALS PO 01/11/22 17:00 01/13/22 16:26 Clindamycin HCl (Cleocin) 300 mg TID PO 01/11/22 14:00 01/15/22 10:00 01/13/22 21:20 Lactobacillus Rhamnosus (Culturelle) 1 cap BID PO 01/11/22 21:00 01/13/22 21:15 Mirtazapine (Remeron) 7.5 mg QHS PO 01/12/22 21:00 01/13/22 21:15 Melatonin (Melatonin) 3 mg QHS PO 01/13/22 21:00 01/13/22 21:15 Current Medications Medications (Trade) Dose Ordered Sig/Kathy Route PRN Reason Start Time Stop Time Status Last Admin Dose Admin Melatonin (Melatonin) 3 mg QHS PO 01/13/22 21:00 01/13/22 21:15 I have reviewed the current psychotropics carefully including drug interactions. Risk benefit ratio favors no change other than as noted in my dictated progress note. Diagnosis: Problems: (1) Impulse control disorder, unspecified (2) Anxiety disorder, unspecified (3) Dementia, vascular, with depression (4) Dementia, vascular, with delusions (5) Dementia in Alzheimer's disease with depression (6) Dementia in Alzheimer's disease with delusions (7) Dementia of the Alzheimer's type with early onset with behavioral disturbance (8) Major neurocognitive disorder LATISHA KHAN MD Jan 13, 2022 21:32
[2022-01-14] MEDS: traMADol 50 MG TABLET PO PRN (02:34)
[2022-01-14 06:04] VITALS: BP 96/66
[2022-01-14] MEDS: BACLOFEN 10 MG TABLET PO SCH ×3 (08:03→20:40)
[2022-01-14] MEDS: GEMFIBROZIL 600 MG TABLET. PO SCH ×2 (08:03→20:40)
[2022-01-14] MEDS: DICYCLOMINE HCL 10 MG CAPSULE PO SCH ×3 (08:03→20:41)
[2022-01-14] MEDS: LACTOBACILLUS RHAMNOSUS GG 1 CAPSULE. PO SCH ×2 (08:03→20:39)
[2022-01-14] MEDS: hydroCHLOROthiazide 25 MG TABLET. PO SCH (08:03)
[2022-01-14] MEDS: CALCIUM CARB/VIT D3 500/200 TABLET PO SCH (08:03)
[2022-01-14] MEDS: QUEtiapine 100 MG TABLET. PO SCH ×2 (08:03→20:40)
[2022-01-14] MEDS: CLINDAMYCIN HCL 150 MG CAPSULE PO SCH ×3 (08:03→20:39)
[2022-01-14] MEDS: DIVALPROEX 125 MG CAP.SPRINK PO SCH ×2 (08:04→16:36)
[2022-01-14] MEDS: SENNOSIDES 8.6 MG TABLET PO SCH ×2 (08:05→20:41)
[2022-01-14] MEDS: LISINOPRIL 10 MG TABLET PO SCH (08:05)
[2022-01-14] MEDS: FLUTICASONE 50MCG/NASAL SPRAY 16GM BOTTLE. NS SCH (08:06)
[2022-01-14] MEDS: POTASSIUM CHLORIDE 10 MEQ TABLET.ER. PO SCH ×3 (08:06→20:39)
[2022-01-14] MEDS: DOCUSATE SODIUM 100 MG CAPSULE PO SCH ×2 (08:06→20:40)
[2022-01-14] MEDS: FLUTICASONE FUROATE 100mcg/INH ELLIPTA INHALER. INH SCH (08:07)
[2022-01-14] MEDS: ALBUTEROL SULFATE 8GM INHALER. INH SCH ×4 (08:07→20:39)
[2022-01-14] MEDS: POLYETHYLENE GLYCOL 3350 17 GM PACKET. PO SCH ×3 (08:14→20:40)
[2022-01-14 08:37] LABS: BASO % 0 % (0-3); EOS % 0 % (0-3); HEMATOCRIT 42.8 % (39.0-53.0); LYMPH # 1.4 x10^3/uL (1.0-4.8); LYMPH % 16 % (24-48); MEAN CORPUSCULAR HEMOGLOBIN 33 pg (25-35); MEAN CORPUSCULAR HGB CONC 33 g/dL (31-37); MEAN CORPUSCULAR VOLUME 101 fL (79-100); MONO # 0.9 x10^3/uL (0.0-1.1); MONO % 11 % (0-9); NEUT % 72 % (31-73); PLATELET COUNT 230 x10^3/uL (140-400); RED BLOOD COUNT 4.22 x10^6/uL (4.30-5.70); RED CELL DISTRIBUTION WIDTH 15.7 % (11.5-14.5); WHITE BLOOD COUNT 8.3 x10^3/uL (4.0-11.0)
[2022-01-14 08:50] LABS: ALBUMIN 2.8 g/dL (3.4-5.0); ALBUMIN/GLOBULIN RATIO 0.7 (1.0-1.7); CALCIUM 10.4 mg/dL (8.5-10.1); CREATININE 1.2 mg/dL (0.7-1.3); GFR 58.4; POTASSIUM 3.9 mmol/L (3.5-5.1); TOTAL PROTEIN 6.6 g/dL (6.4-8.2)
[2022-01-14 15:51] VITALS: BP 110/64
[2022-01-14] MEDS: ATORVASTATIN CALCIUM 20 MG TABLET PO SCH (20:39)
[2022-01-14] MEDS: MIRTAZAPINE 7.5 MG TABLET. PO SCH (20:39)
[2022-01-14] MEDS: MELATONIN 3 MG TABLET PO SCH (20:40)
[2022-01-14] MEDS: traZODone 100 MG TABLET. PO SCH (20:40)
[2022-01-14] MEDS ORDERED: TAMSULOSIN 0.4 MG CAP.ER.24H. PO SCH (21:00)
--- NOTE | 2022-01-14 21:32 | PDOC ---
Exam Note: Antoine Note: Please also refer to the separate dictated note~for this date of service dictated separately.~Patient seen individually. Discussed the patient with Nursing staff reviewed the chart.~Reviewed interim history and current functioning. Reviewed vital signs,~Labs/ Radiology~and current medications noted below. Continue current treatment with the changes noted in the dictated addendum note Assessment: Vital Signs/I&O: Vital Signs Date Time Temp Pulse Resp B/P (MAP) Pulse Ox O2 Delivery O2 Flow Rate FiO2 01/14/22 15:51 97.0 78 20 110/64 (79) 98 01/14/22 03:04 Room Air 01/10/22 16:29 1.0 I & O 0 01/13/22 01/13/22 01/14/22 15:00 23:00 07:00 Intake Total 290 ml 360 ml Output Total 350 ml 250 ml Balance -60 ml 360 ml -250 ml Labs: Laboratory Tests Test 01/14/22 08:05 White Blood Count 8.3 x10^3/uL (4.0-11.0) Red Blood Count 4.22 x10^6/uL (4.30-5.70) L Hemoglobin 14.0 g/dL (13.0-17.5) Hematocrit 42.8 % (39.0-53.0) Mean Corpuscular Volume 101 fL (79-100) H Mean Corpuscular Hemoglobin 33 pg (25-35) Mean Corpuscular Hemoglobin Concent 33 g/dL (31-37) Red Cell Distribution Width 15.7 % (11.5-14.5) H Platelet Count 230 x10^3/uL (140-400) Neutrophils (%) (Auto) 72 % (31-73) Lymphocytes (%) (Auto) 16 % (24-48) L Monocytes (%) (Auto) 11 % (0-9) H Eosinophils (%) (Auto) 0 % (0-3) Basophils (%) (Auto) 0 % (0-3) Neutrophils # (Auto) 6.0 x10^3uL (1.8-7.7) Lymphocytes # (Auto) 1.4 x10^3/uL (1.0-4.8) Monocytes # (Auto) 0.9 x10^3/uL (0.0-1.1) Eosinophils # (Auto) 0.0 x10^3/uL (0.0-0.7) Basophils # (Auto) 0.0 x10^3/uL (0.0-0.2) Sodium Level 148 mmol/L (136-145) H Potassium Level 3.9 mmol/L (3.5-5.1) Chloride Level 108 mmol/L (98-107) H Carbon Dioxide Level 26 mmol/L (21-32) Anion Gap 14 (6-14) Blood Urea Nitrogen 26 mg/dL (8-26) Creatinine 1.2 mg/dL (0.7-1.3) Estimated GFR (Cockcroft-Gault) 58.4 BUN/Creatinine Ratio 22 (6-20) H Glucose Level 108 mg/dL (70-99) H Calcium Level 10.4 mg/dL (8.5-10.1) H Total Bilirubin 1.0 mg/dL (0.2-1.0) Aspartate Amino Transferase (AST) 63 U/L (15-37) H Alanine Aminotransferase (ALT) 71 U/L (16-63) H Alkaline Phosphatase 84 U/L (46-116) Total Protein 6.6 g/dL (6.4-8.2) Albumin 2.8 g/dL (3.4-5.0) L Albumin/Globulin Ratio 0.7 (1.0-1.7) L Current Medications: Meds: Laboratory Tests Test 01/14/22 08:05 White Blood Count 8.3 x10^3/uL Red Blood Count 4.22 x10^6/uL Hemoglobin 14.0 g/dL Hematocrit 42.8 % Mean Corpuscular Volume 101 fL Mean Corpuscular Hemoglobin 33 pg Mean Corpuscular Hemoglobin Concent 33 g/dL Red Cell Distribution Width 15.7 % Platelet Count 230 x10^3/uL Neutrophils (%) (Auto) 72 % Lymphocytes (%) (Auto) 16 % Monocytes (%) (Auto) 11 % Eosinophils (%) (Auto) 0 % Basophils (%) (Auto) 0 % Neutrophils # (Auto) 6.0 x10^3uL Lymphocytes # (Auto) 1.4 x10^3/uL Monocytes # (Auto) 0.9 x10^3/uL Eosinophils # (Auto) 0.0 x10^3/uL Basophils # (Auto) 0.0 x10^3/uL Sodium Level 148 mmol/L Potassium Level 3.9 mmol/L Chloride Level 108 mmol/L Carbon Dioxide Level 26 mmol/L Anion Gap 14 Blood Urea Nitrogen 26 mg/dL Creatinine 1.2 mg/dL Estimated GFR (Cockcroft-Gault) 58.4 BUN/Creatinine Ratio 22 Glucose Level 108 mg/dL Calcium Level 10.4 mg/dL Total Bilirubin 1.0 mg/dL Aspartate Amino Transf (AST/SGOT) 63 U/L Alanine Aminotransferase (ALT/SGPT) 71 U/L Alkaline Phosphatase 84 U/L Total Protein 6.6 g/dL Albumin 2.8 g/dL Albumin/Globulin Ratio 0.7 Current Medications Medications (Trade) Dose Ordered Sig/Kathy Route PRN Reason Start Time Stop Time Status Last Admin Dose Admin Acetaminophen (Tylenol) 650 mg PRN Q6HRS PRN PO MILD PAIN / TEMP > 100.3'F 01/10/22 12:45 Multi-Ingredient Ointment (Analgesic [place]) 1 brenna PRN QID PRN TP MUSCLE PAIN 01/10/22 12:45 Al Hydroxide/Mg Hydroxide (Mylanta Plus Xs) 15 ml PRN AFTMEALHC PRN PO DYSPEPSIA 01/10/22 12:45 Magnesium Hydroxide (Milk Of Magnesia) 2,400 mg PRN QHS PRN PO 1ST CHOICE CONSTIPATION 01/10/22 12:45 Albuterol Sulfate (Ventolin) 1.8 mg QID IH 01/10/22 17:00 01/10/22 17:12 DC Baclofen (Lioresal) 10 mg TID PO 01/10/22 21:00 01/14/22 20:40 Bisacodyl (Fleet Bisacodyl) 10 mg PRN DAILY PRN RC 2ND CHOICE CONSTIPATION 01/10/22 15:45 Dicyclomine HCl (Bentyl) 10 mg TID PO 01/10/22 21:00 01/14/22 20:41 Docusate Sodium (Colace) 100 mg BID PO 01/10/22 21:00 01/13/22 07:54 Fluticasone Propionate (Flonase) 1 spray DAILY NS 01/11/22 09:00 01/14/22 08:06 Gemfibrozil (Lopid) 600 mg BID PO 01/10/22 21:00 01/14/22 20:40 Hydrochlorothiazide (Hydrodiuril) 25 mg DAILY PO 01/11/22 09:00 01/14/22 08:03 Lisinopril (Prinivil) 10 mg DAILY PO 01/11/22 09:00 01/14/22 08:05 Polyethylene Glycol (miraLAX) 17 gm TID PO 01/10/22 21:00 01/14/22 13:15 Potassium Chloride (Klor-Con) 10 meq TID PO 01/10/22 21:00 01/14/22 20:39 Quetiapine Fumarate (SEROquel) 100 mg BID PO 01/10/22 21:00 01/14/22 20:40 Sennosides (Senna) 8.6 mg BID PO 01/10/22 21:00 01/13/22 07:54 Simethicone (Gas-X) 80 mg PRN Q8HRS PRN PO GAS / BLOATING 01/10/22 15:45 Tramadol HCl (Ultram) 25 mg PRN Q8HRS PRN PO MOD-SEV PAIN 01/10/22 15:45 01/14/22 02:34 Trazodone HCl (Desyrel) 200 mg QHS PO 01/10/22 21:00 01/14/22 20:40 Calcium/Vitamin D (Oscal D 500mg/ 200uts) 2 tab DAILY PO 01/11/22 09:00 01/14/22 08:03 Artificial Tears (Refresh Classic) 2 drop PRN Q6HRS PRN OU DRY EYE 01/10/22 17:15 Non-Formulary Medication (Clindamycin Hcl ) 300 mg TID PO 01/10/22 21:00 01/11/22 12:35 DC Diltiazem HCl (Cardizem 24hr Cd) 120 mg DAILY PO 01/11/22 09:00 01/14/22 08:04 Non-Formulary Medication (Lactobacillus Acidophilus (Probiotic)) 1 cap DAILY PO 01/11/22 09:00 01/11/22 12:34 DC Atorvastatin Calcium (Lipitor) 20 mg QHS PO 01/10/22 21:00 01/14/22 20:39 Non-Formulary Medication ([mometasone ] ) 220 mcg DAILY INH 01/11/22 09:00 01/10/22 17:17 DC Albuterol Sulfate (Ventolin) 2.5 mg QID IH 01/10/22 17:12 Cancel Budesonide (Pulmicort) 0.5 mg RTBID NEB 01/10/22 20:00 Cancel Fluticasone Furoate (ARNUITY 100mcg ELLIPTA) 1 puff DAILY INH 01/11/22 09:00 01/14/22 08:07 Albuterol Sulfate (Ventolin Hfa Inhaler) 2 puff QID INH 01/10/22 21:00 01/14/22 20:39 Olanzapine (ZyPREXA ZYDIS) 5 mg PRN Q2HR PRN PO PSYCHOSIS 01/10/22 22:45 01/14/22 10:47 Divalproex Sodium (Depakote Sprinkles) 125 mg BIDWMEALS PO 01/11/22 17:00 01/14/22 16:36 Clindamycin HCl (Cleocin) 300 mg TID PO 01/11/22 14:00 01/15/22 10:00 01/14/22 20:39 Lactobacillus Rhamnosus (Culturelle) 1 cap BID PO 01/11/22 21:00 01/14/22 20:39 Mirtazapine (Remeron) 7.5 mg QHS PO 01/12/22 21:00 01/14/22 20:39 Melatonin (Melatonin) 3 mg QHS PO 01/13/22 21:00 01/14/22 20:40 Tamsulosin HCl (Flomax) 0.4 mg QHS PO 01/14/22 21:00 01/14/22 20:39 Current Medications Medications (Trade) Dose Ordered Sig/Kathy Route PRN Reason Start Time Stop Time Status Last Admin Dose Admin Tamsulosin HCl (Flomax) 0.4 mg QHS PO 01/14/22 21:00 01/14/22 20:39 I have reviewed the current psychotropics carefully including drug interactions. Risk benefit ratio favors no change other than as noted in my dictated progress note. Diagnosis: Problems: (1) Impulse control disorder, unspecified (2) Anxiety disorder, unspecified (3) Dementia, vascular, with depression (4) Dementia, vascular, with delusions (5) Dementia in Alzheimer's disease with depression (6) Dementia in Alzheimer's disease with delusions (7) Dementia of the Alzheimer's type with early onset with behavioral disturbance (8) Major neurocognitive disorder LATISHA KHAN MD Jan 14, 2022 21:32
[2022-01-15] MEDS: traMADol 50 MG TABLET PO PRN (04:01)
[2022-01-15 05:58] VITALS: BP 93/63
--- NOTE | 2022-01-15 07:32 | PDOC ---
Exam Note: Antoine Note: This note is a late entry for 01/12/2022 covers elements not covered in my initial note. Subjective: The patient was seen individually on 01/12/2022, discussed and reviewed the chart with More EVANS. The patient slept 0 hours previous night. He remains confused, restless, anxious, has been in the Quiet room in the daytime, restless in bed. He had had a straight cath today. Appetite is poor. If he gets dehydrated, we will defer to Dr. Sal/Dr. Martines. Review of Systems: Ambulation impaired, in Broda chair. No CV, , pulmonary, eye, ENT system symptoms on review. Reliability poor. Mental Status Exam: The patient is oriented to himself. Insight and judgment, recent and remote memory, attention and concentration, fund of knowledge is poor consistent with his diagnoses. Laboratory Data: Reviewed. Impression: Major neurocognitive disorder, multifactorial status post head injury with intracranial bleed, Alzheimer, vascular with delusion, depression behavioral disturbance. Anxiety disorder unspecified. Impulse control disorder unspecified. Plan: Continue psychotropics from initial note. Start Remeron 7.5 mg p.o. h.s. since he slept 0 hours previous night. He gets 200 mg trazodone at night, 100 mg b.i.d. Seroquel. We will make further adjustments in his psychotropics as clinically indicated. Assessment: Vital Signs/I&O: Vital Signs Date Time Temp Pulse Resp B/P (MAP) Pulse Ox O2 Delivery O2 Flow Rate FiO2 01/15/22 05:58 97.0 67 22 93/63 (73) 93 01/14/22 03:04 Room Air 01/10/22 16:29 1.0 I & O 01/14/22 01/14/22 01/15/22 15:00 23:00 07:00 Intake Total 60 ml 240 ml 0 ml Balance 60 ml 240 ml 0 ml Labs: Laboratory Tests Test 01/14/22 08:05 White Blood Count 8.3 x10^3/uL (4.0-11.0) Red Blood Count 4.22 x10^6/uL (4.30-5.70) L Hemoglobin 14.0 g/dL (13.0-17.5) Hematocrit 42.8 % (39.0-53.0) Mean Corpuscular Volume 101 fL (79-100) H Mean Corpuscular Hemoglobin 33 pg (25-35) Mean Corpuscular Hemoglobin Concent 33 g/dL (31-37) Red Cell Distribution Width 15.7 % (11.5-14.5) H Platelet Count 230 x10^3/uL (140-400) Neutrophils (%) (Auto) 72 % (31-73) Lymphocytes (%) (Auto) 16 % (24-48) L Monocytes (%) (Auto) 11 % (0-9) H Eosinophils (%) (Auto) 0 % (0-3) Basophils (%) (Auto) 0 % (0-3) Neutrophils # (Auto) 6.0 x10^3uL (1.8-7.7) Lymphocytes # (Auto) 1.4 x10^3/uL (1.0-4.8) Monocytes # (Auto) 0.9 x10^3/uL (0.0-1.1) Eosinophils # (Auto) 0.0 x10^3/uL (0.0-0.7) Basophils # (Auto) 0.0 x10^3/uL (0.0-0.2) Sodium Level 148 mmol/L (136-145) H Potassium Level 3.9 mmol/L (3.5-5.1) Chloride Level 108 mmol/L (98-107) H Carbon Dioxide Level 26 mmol/L (21-32) Anion Gap 14 (6-14) Blood Urea Nitrogen 26 mg/dL (8-26) Creatinine 1.2 mg/dL (0.7-1.3) Estimated GFR (Cockcroft-Gault) 58.4 BUN/Creatinine Ratio 22 (6-20) H Glucose Level 108 mg/dL (70-99) H Calcium Level 10.4 mg/dL (8.5-10.1) H Total Bilirubin 1.0 mg/dL (0.2-1.0) Aspartate Amino Transferase (AST) 63 U/L (15-37) H Alanine Aminotransferase (ALT) 71 U/L (16-63) H Alkaline Phosphatase 84 U/L (46-116) Total Protein 6.6 g/dL (6.4-8.2) Albumin 2.8 g/dL (3.4-5.0) L Albumin/Globulin Ratio 0.7 (1.0-1.7) L Current Medications: Meds: Current Medications Medications (Trade) Dose Ordered Sig/Kathy Route PRN Reason Start Time Stop Time Status Last Admin Dose Admin Tamsulosin HCl (Flomax) 0.4 mg QHS PO 01/14/22 21:00 01/14/22 20:39 I have reviewed the current psychotropics carefully including drug interactions. Risk benefit ratio favors no change other than as noted in my dictated progress note. Diagnosis: Problems: (1) Impulse control disorder, unspecified (2) Anxiety disorder, unspecified (3) Dementia, vascular, with depression (4) Dementia, vascular, with delusions (5) Dementia in Alzheimer's disease with depression (6) Dementia in Alzheimer's disease with delusions (7) Dementia of the Alzheimer's type with early onset with behavioral disturbance (8) Major neurocognitive disorder LATISHA KHAN MD Jan 15, 2022 07:32
--- NOTE | 2022-01-15 07:48 | PDOC ---
Exam Note: Antoine Note: This note is a late entry for 01/13/2022 covers elements not covered in my initial note. Subjective: The patient was seen individually on 01/13/2022, discussed and reviewed the chart with Roni EVANS. The patient slept 1/2 hours previous night. He is extremely restless, anxious, confused, tries to climb out of the Broda chair, incontinent, yelling out at times and redirects with cares. He slept poorly previous night and we will add melatonin 3 mg h.s. having already added Remeron 7.5 mg h.s. and he gets trazodone 200 mg h.s. Review of Systems: Ambulation impaired, in Broda chair. No CV, , pulmonary, eye, ENT system symptoms on review. Reliability poor. Mental Status Exam: The patient is oriented to himself. Insight and judgment, recent and remote memory, attention and concentration, fund of knowledge is poor consistent with his diagnoses. Laboratory Data: Reviewed. Impression: Major neurocognitive disorder, multifactorial status post head injury with intracranial bleed, Alzheimer, vascular with delusion, depression behavioral disturbance. Anxiety disorder unspecified. Impulse control disorder unspecified. Plan: Continue psychotropics from initial note. Assessment: Vital Signs/I&O: Vital Signs Date Time Temp Pulse Resp B/P (MAP) Pulse Ox O2 Delivery O2 Flow Rate FiO2 01/15/22 05:58 97.0 67 22 93/63 (73) 93 01/14/22 03:04 Room Air 01/10/22 16:29 1.0 I & O 01/14/22 01/14/22 01/15/22 15:00 23:00 07:00 Intake Total 60 ml 240 ml 0 ml Balance 60 ml 240 ml 0 ml Labs: Laboratory Tests Test 01/14/22 08:05 White Blood Count 8.3 x10^3/uL (4.0-11.0) Red Blood Count 4.22 x10^6/uL (4.30-5.70) L Hemoglobin 14.0 g/dL (13.0-17.5) Hematocrit 42.8 % (39.0-53.0) Mean Corpuscular Volume 101 fL (79-100) H Mean Corpuscular Hemoglobin 33 pg (25-35) Mean Corpuscular Hemoglobin Concent 33 g/dL (31-37) Red Cell Distribution Width 15.7 % (11.5-14.5) H Platelet Count 230 x10^3/uL (140-400) Neutrophils (%) (Auto) 72 % (31-73) Lymphocytes (%) (Auto) 16 % (24-48) L Monocytes (%) (Auto) 11 % (0-9) H Eosinophils (%) (Auto) 0 % (0-3) Basophils (%) (Auto) 0 % (0-3) Neutrophils # (Auto) 6.0 x10^3uL (1.8-7.7) Lymphocytes # (Auto) 1.4 x10^3/uL (1.0-4.8) Monocytes # (Auto) 0.9 x10^3/uL (0.0-1.1) Eosinophils # (Auto) 0.0 x10^3/uL (0.0-0.7) Basophils # (Auto) 0.0 x10^3/uL (0.0-0.2) Sodium Level 148 mmol/L (136-145) H Potassium Level 3.9 mmol/L (3.5-5.1) Chloride Level 108 mmol/L (98-107) H Carbon Dioxide Level 26 mmol/L (21-32) Anion Gap 14 (6-14) Blood Urea Nitrogen 26 mg/dL (8-26) Creatinine 1.2 mg/dL (0.7-1.3) Estimated GFR (Cockcroft-Gault) 58.4 BUN/Creatinine Ratio 22 (6-20) H Glucose Level 108 mg/dL (70-99) H Calcium Level 10.4 mg/dL (8.5-10.1) H Total Bilirubin 1.0 mg/dL (0.2-1.0) Aspartate Amino Transferase (AST) 63 U/L (15-37) H Alanine Aminotransferase (ALT) 71 U/L (16-63) H Alkaline Phosphatase 84 U/L (46-116) Total Protein 6.6 g/dL (6.4-8.2) Albumin 2.8 g/dL (3.4-5.0) L Albumin/Globulin Ratio 0.7 (1.0-1.7) L Current Medications: Meds: Current Medications Medications (Trade) Dose Ordered Sig/Kathy Route PRN Reason Start Time Stop Time Status Last Admin Dose Admin Tamsulosin HCl (Flomax) 0.4 mg QHS PO 01/14/22 21:00 01/14/22 20:39 I have reviewed the current psychotropics carefully including drug interactions. Risk benefit ratio favors no change other than as noted in my dictated progress note. Diagnosis: Problems: (1) Impulse control disorder, unspecified (2) Anxiety disorder, unspecified (3) Dementia, vascular, with depression (4) Dementia, vascular, with delusions (5) Dementia in Alzheimer's disease with depression (6) Dementia in Alzheimer's disease with delusions (7) Dementia of the Alzheimer's type with early onset with behavioral disturbance (8) Major neurocognitive disorder LATISHA KHAN MD Jan 15, 2022 07:48
--- NOTE | 2022-01-15 08:00 | PDOC ---
Exam Note: Antoine Note: This note is a late entry for 01/14/2022 covers elements not covered in my initial note. Subjective: The patient was seen individually on 01/14/2022, discussed and reviewed the chart with Elisabeth EVANS. The patient slept 2-3/4 hours previous night. He remains confused, agitated, yelling all night. He has had no urination and we will defer to Dr. Sal/Dr. Martines. Fluids are being pushed and bladder scan being done. Labs to be checked in the morning. He was in the separate hallway to reduce stimuli with mats on the floor as I met with him. Review of Systems: Ambulation impaired, in Broda chair. No CV, , pulmonary, eye, ENT system symptoms on review. Reliability poor. Mental Status Exam: The patient is oriented to himself. Insight and judgment, recent and remote memory, attention and concentration, fund of knowledge is poor consistent with his diagnoses. Laboratory Data: Reviewed. Impression: Major neurocognitive disorder, Alzheimer, vascular with delusion, depression behavioral disturbance. Anxiety disorder unspecified. Impulse control disorder unspecified. Plan: Continue psychotropics from initial note. Assessment: Vital Signs/I&O: Vital Signs Date Time Temp Pulse Resp B/P (MAP) Pulse Ox O2 Delivery O2 Flow Rate FiO2 01/15/22 05:58 97.0 67 22 93/63 (73) 93 01/14/22 03:04 Room Air 01/10/22 16:29 1.0 I & O 01/14/22 01/14/22 01/15/22 15:00 23:00 07:00 Intake Total 60 ml 240 ml 0 ml Balance 60 ml 240 ml 0 ml Labs: Laboratory Tests Test 01/14/22 08:05 White Blood Count 8.3 x10^3/uL (4.0-11.0) Red Blood Count 4.22 x10^6/uL (4.30-5.70) L Hemoglobin 14.0 g/dL (13.0-17.5) Hematocrit 42.8 % (39.0-53.0) Mean Corpuscular Volume 101 fL (79-100) H Mean Corpuscular Hemoglobin 33 pg (25-35) Mean Corpuscular Hemoglobin Concent 33 g/dL (31-37) Red Cell Distribution Width 15.7 % (11.5-14.5) H Platelet Count 230 x10^3/uL (140-400) Neutrophils (%) (Auto) 72 % (31-73) Lymphocytes (%) (Auto) 16 % (24-48) L Monocytes (%) (Auto) 11 % (0-9) H Eosinophils (%) (Auto) 0 % (0-3) Basophils (%) (Auto) 0 % (0-3) Neutrophils # (Auto) 6.0 x10^3uL (1.8-7.7) Lymphocytes # (Auto) 1.4 x10^3/uL (1.0-4.8) Monocytes # (Auto) 0.9 x10^3/uL (0.0-1.1) Eosinophils # (Auto) 0.0 x10^3/uL (0.0-0.7) Basophils # (Auto) 0.0 x10^3/uL (0.0-0.2) Sodium Level 148 mmol/L (136-145) H Potassium Level 3.9 mmol/L (3.5-5.1) Chloride Level 108 mmol/L (98-107) H Carbon Dioxide Level 26 mmol/L (21-32) Anion Gap 14 (6-14) Blood Urea Nitrogen 26 mg/dL (8-26) Creatinine 1.2 mg/dL (0.7-1.3) Estimated GFR (Cockcroft-Gault) 58.4 BUN/Creatinine Ratio 22 (6-20) H Glucose Level 108 mg/dL (70-99) H Calcium Level 10.4 mg/dL (8.5-10.1) H Total Bilirubin 1.0 mg/dL (0.2-1.0) Aspartate Amino Transferase (AST) 63 U/L (15-37) H Alanine Aminotransferase (ALT) 71 U/L (16-63) H Alkaline Phosphatase 84 U/L (46-116) Total Protein 6.6 g/dL (6.4-8.2) Albumin 2.8 g/dL (3.4-5.0) L Albumin/Globulin Ratio 0.7 (1.0-1.7) L Current Medications: Meds: Current Medications Medications (Trade) Dose Ordered Sig/Kathy Route PRN Reason Start Time Stop Time Status Last Admin Dose Admin Tamsulosin HCl (Flomax) 0.4 mg QHS PO 01/14/22 21:00 01/14/22 20:39 I have reviewed the current psychotropics carefully including drug interactions. Risk benefit ratio favors no change other than as noted in my dictated progress note. Diagnosis: Problems: (1) Impulse control disorder, unspecified (2) Anxiety disorder, unspecified (3) Dementia, vascular, with depression (4) Dementia, vascular, with delusions (5) Dementia in Alzheimer's disease with depression (6) Dementia in Alzheimer's disease with delusions (7) Dementia of the Alzheimer's type with early onset with behavioral disturbance (8) Major neurocognitive disorder LATISHA KHAN MD Jan 15, 2022 08:00
[2022-01-15] MEDS: LISINOPRIL 10 MG TABLET PO SCH (08:31)
[2022-01-15] MEDS: CLINDAMYCIN HCL 150 MG CAPSULE PO SCH (08:31)
[2022-01-15] MEDS: QUEtiapine 100 MG TABLET. PO SCH (08:32)
[2022-01-15] MEDS: CALCIUM CARB/VIT D3 500/200 TABLET PO SCH (08:32)
[2022-01-15] MEDS: SENNOSIDES 8.6 MG TABLET PO SCH (08:32)
[2022-01-15] MEDS: LACTOBACILLUS RHAMNOSUS GG 1 CAPSULE. PO SCH (08:32)
[2022-01-15] MEDS: DIVALPROEX 125 MG CAP.SPRINK PO SCH (08:32)
[2022-01-15] MEDS: DICYCLOMINE HCL 10 MG CAPSULE PO SCH (08:32)
[2022-01-15] MEDS: GEMFIBROZIL 600 MG TABLET. PO SCH (08:32)
[2022-01-15] MEDS: BACLOFEN 10 MG TABLET PO SCH (08:32)
[2022-01-15] MEDS: POTASSIUM CHLORIDE 10 MEQ TABLET.ER. PO SCH (08:32)
[2022-01-15] MEDS: DOCUSATE SODIUM 100 MG CAPSULE PO SCH (08:33)
[2022-01-15] MEDS: POLYETHYLENE GLYCOL 3350 17 GM PACKET. PO SCH (08:33)
[2022-01-15 08:35] VITALS: BP 93/63
[2022-01-15] MEDS: FLUTICASONE 50MCG/NASAL SPRAY 16GM BOTTLE. NS SCH (08:37)
[2022-01-15] MEDS: ALBUTEROL SULFATE 8GM INHALER. INH SCH (08:37)
[2022-01-15] MEDS: hydroCHLOROthiazide 25 MG TABLET. PO SCH (08:38)
[2022-01-15] MEDS: FLUTICASONE FUROATE 100mcg/INH ELLIPTA INHALER. INH SCH (08:38)
[2022-01-15 10:33] LABS: BASO % 0 % (0-3); EOS % 0 % (0-3); HEMATOCRIT 40.2 % (39.0-53.0); HEMOGLOBIN 13.4 g/dL (13.0-17.5); LYMPH # 2.5 x10^3/uL (1.0-4.8); LYMPH % 25 % (24-48); MEAN CORPUSCULAR HEMOGLOBIN 34 pg (25-35); MEAN CORPUSCULAR HGB CONC 33 g/dL (31-37); MEAN CORPUSCULAR VOLUME 102 fL (79-100); MONO # 0.8 x10^3/uL (0.0-1.1); MONO % 8 % (0-9); NEUT # 6.8 x10^3uL (1.8-7.7); NEUT % 68 % (31-73); PLATELET COUNT 266 x10^3/uL (140-400); RED BLOOD COUNT 3.93 x10^6/uL (4.30-5.70); RED CELL DISTRIBUTION WIDTH 16.4 % (11.5-14.5); WHITE BLOOD COUNT 10.1 x10^3/uL (4.0-11.0)
[2022-01-15 10:53] LABS: ALBUMIN 2.6 g/dL (3.4-5.0); ALBUMIN/GLOBULIN RATIO 0.7 (1.0-1.7); ALK PHOS 83 U/L (46-116); ALT (SGPT) 61 U/L (16-63); ANION GAP 15 (6-14); AST (SGOT) 44 U/L (15-37); BLOOD UREA NITROGEN 35 mg/dL (8-26); BUN/CREATININE RATIO 17 (6-20); CARBON DIOXIDE 24 mmol/L (21-32); CHLORIDE 114 mmol/L (98-107); CREATININE 2.1 mg/dL (0.7-1.3); GFR 30.6; GLUCOSE 159 mg/dL (70-99); POTASSIUM 4.7 mmol/L (3.5-5.1); SODIUM 153 mmol/L (136-145); TOTAL PROTEIN 6.5 g/dL (6.4-8.2)
[2022-01-15 11:50] LABS: VAL ACID 19 mcg/mL (50-100)
--- NOTE | 2022-01-15 21:05 | PDOC ---
Exam Note: Antoine Note: Please also refer to the separate dictated note~for this date of service dictated separately.~Patient seen individually. Discussed the patient with Nursing staff reviewed the chart.~Reviewed interim history and current functioning. Reviewed vital signs,~Labs/ Radiology~and current medications noted below. Continue current treatment with the changes noted in the dictated addendum note Assessment: Vital Signs/I&O: Vital Signs Date Time Temp Pulse Resp B/P (MAP) Pulse Ox O2 Delivery O2 Flow Rate FiO2 01/15/22 08:35 67 93/63 01/15/22 05:58 97.0 22 93 01/14/22 03:04 Room Air 01/10/22 16:29 1.0 I & O 01/14/22 01/14/22 01/15/22 15:00 23:00 07:00 Intake Total 60 ml 240 ml 0 ml Balance 60 ml 240 ml 0 ml Labs: Laboratory Tests Test 01/15/22 10:05 White Blood Count 10.1 x10^3/uL (4.0-11.0) Red Blood Count 3.93 x10^6/uL (4.30-5.70) L Hemoglobin 13.4 g/dL (13.0-17.5) Hematocrit 40.2 % (39.0-53.0) Mean Corpuscular Volume 102 fL (79-100) H Mean Corpuscular Hemoglobin 34 pg (25-35) Mean Corpuscular Hemoglobin Concent 33 g/dL (31-37) Red Cell Distribution Width 16.4 % (11.5-14.5) H Platelet Count 266 x10^3/uL (140-400) Neutrophils (%) (Auto) 68 % (31-73) Lymphocytes (%) (Auto) 25 % (24-48) Monocytes (%) (Auto) 8 % (0-9) Eosinophils (%) (Auto) 0 % (0-3) Basophils (%) (Auto) 0 % (0-3) Neutrophils # (Auto) 6.8 x10^3uL (1.8-7.7) Lymphocytes # (Auto) 2.5 x10^3/uL (1.0-4.8) Monocytes # (Auto) 0.8 x10^3/uL (0.0-1.1) Eosinophils # (Auto) 0.0 x10^3/uL (0.0-0.7) Basophils # (Auto) 0.0 x10^3/uL (0.0-0.2) Sodium Level 153 mmol/L (136-145) H Potassium Level 4.7 mmol/L (3.5-5.1) Chloride Level 114 mmol/L (98-107) H Carbon Dioxide Level 24 mmol/L (21-32) Anion Gap 15 (6-14) H Blood Urea Nitrogen 35 mg/dL (8-26) H Creatinine 2.1 mg/dL (0.7-1.3) H Estimated GFR (Cockcroft-Gault) 30.6 BUN/Creatinine Ratio 17 (6-20) Glucose Level 159 mg/dL (70-99) H Calcium Level 11.0 mg/dL (8.5-10.1) H Total Bilirubin 1.0 mg/dL (0.2-1.0) Aspartate Amino Transferase (AST) 44 U/L (15-37) H Alanine Aminotransferase (ALT) 61 U/L (16-63) Alkaline Phosphatase 83 U/L (46-116) Total Protein 6.5 g/dL (6.4-8.2) Albumin 2.6 g/dL (3.4-5.0) L Albumin/Globulin Ratio 0.7 (1.0-1.7) L Valproic Acid Level 19 mcg/mL (50-100) L Valproic Acid Last Dose Date 01/14/22 Valproic Acid Last Dose Time 1700 Current Medications: Meds: Laboratory Tests Test 01/15/22 10:05 White Blood Count 10.1 x10^3/uL Red Blood Count 3.93 x10^6/uL Hemoglobin 13.4 g/dL Hematocrit 40.2 % Mean Corpuscular Volume 102 fL Mean Corpuscular Hemoglobin 34 pg Mean Corpuscular Hemoglobin Concent 33 g/dL Red Cell Distribution Width 16.4 % Platelet Count 266 x10^3/uL Neutrophils (%) (Auto) 68 % Lymphocytes (%) (Auto) 25 % Monocytes (%) (Auto) 8 % Eosinophils (%) (Auto) 0 % Basophils (%) (Auto) 0 % Neutrophils # (Auto) 6.8 x10^3uL Lymphocytes # (Auto) 2.5 x10^3/uL Monocytes # (Auto) 0.8 x10^3/uL Eosinophils # (Auto) 0.0 x10^3/uL Basophils # (Auto) 0.0 x10^3/uL Sodium Level 153 mmol/L Potassium Level 4.7 mmol/L Chloride Level 114 mmol/L Carbon Dioxide Level 24 mmol/L Anion Gap 15 Blood Urea Nitrogen 35 mg/dL Creatinine 2.1 mg/dL Estimated GFR (Cockcroft-Gault) 30.6 BUN/Creatinine Ratio 17 Glucose Level 159 mg/dL Calcium Level 11.0 mg/dL Total Bilirubin 1.0 mg/dL Aspartate Amino Transf (AST/SGOT) 44 U/L Alanine Aminotransferase (ALT/SGPT) 61 U/L Alkaline Phosphatase 83 U/L Total Protein 6.5 g/dL Albumin 2.6 g/dL Albumin/Globulin Ratio 0.7 Valproic Acid (Depakene) Level 19 mcg/mL Valproic Acid Last Dose Date 01/14/22 Valproic Acid Last Dose Time 1700 Current Medications Medications (Trade) Dose Ordered Sig/Kathy Route PRN Reason Start Time Stop Time Status Last Admin Dose Admin Acetaminophen (Tylenol) 650 mg PRN Q6HRS PRN PO MILD PAIN / TEMP > 100.3'F 01/10/22 12:45 01/15/22 12:23 DC Multi-Ingredient Ointment (Analgesic Cushing) 1 brenna PRN QID PRN TP MUSCLE PAIN 01/10/22 12:45 01/15/22 12:23 DC Al Hydroxide/Mg Hydroxide (Mylanta Plus Xs) 15 ml PRN AFTMEALHC PRN PO DYSPEPSIA 01/10/22 12:45 01/15/22 12:23 DC Magnesium Hydroxide (Milk Of Magnesia) 2,400 mg PRN QHS PRN PO 1ST CHOICE CONSTIPATION 01/10/22 12:45 01/15/22 12:23 DC Albuterol Sulfate (Ventolin) 1.8 mg QID IH 01/10/22 17:00 01/10/22 17:12 DC Baclofen (Lioresal) 10 mg TID PO 01/10/22 21:00 01/15/22 12:23 DC 01/15/22 08:32 Bisacodyl (Fleet Bisacodyl) 10 mg PRN DAILY PRN RC 2ND CHOICE CONSTIPATION 01/10/22 15:45 01/15/22 12:23 DC Dicyclomine HCl (Bentyl) 10 mg TID PO 01/10/22 21:00 01/15/22 12:23 DC 01/15/22 08:32 Docusate Sodium (Colace) 100 mg BID PO 01/10/22 21:00 01/15/22 12:23 DC 01/13/22 07:54 Fluticasone Propionate (Flonase) 1 spray DAILY NS 01/11/22 09:00 01/15/22 12:23 DC 01/15/22 08:37 Gemfibrozil (Lopid) 600 mg BID PO 01/10/22 21:00 01/15/22 12:23 DC 01/15/22 08:32 Hydrochlorothiazide (Hydrodiuril) 25 mg DAILY PO 01/11/22 09:00 01/15/22 12:23 DC 01/14/22 08:03 Lisinopril (Prinivil) 10 mg DAILY PO 01/11/22 09:00 01/15/22 12:23 DC 01/14/22 08:05 Polyethylene Glycol (miraLAX) 17 gm TID PO 01/10/22 21:00 01/15/22 12:23 DC 01/14/22 13:15 Potassium Chloride (Klor-Con) 10 meq TID PO 01/10/22 21:00 01/15/22 12:23 DC 01/15/22 08:32 Quetiapine Fumarate (SEROquel) 100 mg BID PO 01/10/22 21:00 01/15/22 12:23 DC 01/15/22 08:32 Sennosides (Senna) 8.6 mg BID PO 01/10/22 21:00 01/15/22 12:23 DC 01/13/22 07:54 Simethicone (Gas-X) 80 mg PRN Q8HRS PRN PO GAS / BLOATING 01/10/22 15:45 01/15/22 12:23 DC Tramadol HCl (Ultram) 25 mg PRN Q8HRS PRN PO MOD-SEV PAIN 01/10/22 15:45 01/15/22 12:23 DC 01/15/22 04:01 Trazodone HCl (Desyrel) 200 mg QHS PO 01/10/22 21:00 01/15/22 12:23 DC 01/14/22 20:40 Calcium/Vitamin D (Oscal D 500mg/ 200uts) 2 tab DAILY PO 01/11/22 09:00 01/15/22 11:50 DC 01/15/22 08:32 Artificial Tears (Refresh Classic) 2 drop PRN Q6HRS PRN OU DRY EYE 01/10/22 17:15 01/15/22 12:23 DC Non-Formulary Medication (Clindamycin Hcl ) 300 mg TID PO 01/10/22 21:00 01/11/22 12:35 DC Diltiazem HCl (Cardizem 24hr Cd) 120 mg DAILY PO 01/11/22 09:00 01/15/22 12:23 DC 01/14/22 08:04 Non-Formulary Medication (Lactobacillus Acidophilus (Probiotic)) 1 cap DAILY PO 01/11/22 09:00 01/11/22 12:34 DC Atorvastatin Calcium (Lipitor) 20 mg QHS PO 01/10/22 21:00 01/15/22 12:23 DC 01/14/22 20:39 Non-Formulary Medication ([mometasone ] ) 220 mcg DAILY INH 01/11/22 09:00 01/10/22 17:17 DC Albuterol Sulfate (Ventolin) 2.5 mg QID IH 01/10/22 17:12 Cancel Budesonide (Pulmicort) 0.5 mg RTBID NEB 01/10/22 20:00 Cancel Fluticasone Furoate (ARNUITY 100mcg ELLIPTA) 1 puff DAILY INH 01/11/22 09:00 01/15/22 12:23 DC 01/15/22 08:38 Albuterol Sulfate (Ventolin Hfa Inhaler) 2 puff QID INH 01/10/22 21:00 01/15/22 12:23 DC 01/15/22 08:37 Olanzapine (ZyPREXA ZYDIS) 5 mg PRN Q2HR PRN PO PSYCHOSIS 01/10/22 22:45 01/15/22 12:23 DC 01/15/22 04:01 Divalproex Sodium (Depakote Sprinkles) 125 mg BIDWMEALS PO 01/11/22 17:00 01/15/22 12:23 DC 01/15/22 08:32 Clindamycin HCl (Cleocin) 300 mg TID PO 01/11/22 14:00 01/15/22 10:00 DC 01/15/22 08:31 Lactobacillus Rhamnosus (Culturelle) 1 cap BID PO 01/11/22 21:00 01/15/22 12:23 DC 01/15/22 08:32 Mirtazapine (Remeron) 7.5 mg QHS PO 01/12/22 21:00 01/15/22 12:23 DC 01/14/22 20:39 Melatonin (Melatonin) 3 mg QHS PO 01/13/22 21:00 01/15/22 12:23 DC 01/14/22 20:40 Tamsulosin HCl (Flomax) 0.4 mg QHS PO 01/14/22 21:00 01/15/22 12:23 DC 01/14/22 20:39 I have reviewed the current psychotropics carefully including drug interactions. Risk benefit ratio favors no change other than as noted in my dictated progress note. Diagnosis: Problems: (1) Impulse control disorder, unspecified (2) Anxiety disorder, unspecified (3) Dementia, vascular, with depression (4) Dementia, vascular, with delusions (5) Dementia in Alzheimer's disease with depression (6) Dementia in Alzheimer's disease with delusions (7) Dementia of the Alzheimer's type with early onset with behavioral disturbance (8) Major neurocognitive disorder LATISHA KHAN MD Jan 15, 2022 21:05
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
== END 2022-01-15 12:22 | disposition short-term general hospital (02) | DRG 56 ==
LOC: GEROPSY 12:33
PROVIDERS: ADMIT Psychiatry & Neurology Psychiatry; ATTEND Psychiatry & Neurology Psychiatry
DX: G30.9 Alzheimer's disease, unspecified (principal); F01.50 Vascular dementia, unspecified severity, without behavioral disturbance, psychotic disturbance, mood disturbance, and anxiety; J96.00 Acute respiratory failure, unspecified whether with hypoxia or hypercapnia; N19 Unspecified kidney failure; F02.81 Dementia in other diseases classified elsewhere, unspecified severity, with behavioral disturbance; E78.5 Hyperlipidemia, unspecified; E86.0 Dehydration; F32.A Depression, unspecified; Z66 Do not resuscitate; F41.9 Anxiety disorder, unspecified; F63.9 Impulse disorder, unspecified; K58.9 Irritable bowel syndrome, unspecified; I10 Essential (primary) hypertension; I25.10 Atherosclerotic heart disease of native coronary artery without angina pectoris; I48.0 Paroxysmal atrial fibrillation; J44.9 Chronic obstructive pulmonary disease, unspecified; Z79.899 Other long term (current) drug therapy; Z86.16 Personal history of COVID-19; Z87.891 Personal history of nicotine dependence; Z88.8 Allergy status to other drugs, medicaments and biological substances; Z88.1 Allergy status to other antibiotic agents
CPT/HCPCS: 36415; 80053; 80061; 80164; 81001; 82306; 82607; 83036; 83540; 83550; 83735; 84436; 84443; 84480; 85025; 85379; 86592; 93005; 97530